=== PATIENT | female | born 1975 | race Caucasian/White ===

== ENCOUNTER 2017-06-02 20:44 | Emergency (ER) | payer MEDICAID ==
[~2017-06-02] VITALS: Ht 152.4 cm; Wt 44.5 kg
[2017-06-02 22:48] VITALS: BP 116/68
== END 2017-06-02 22:48 | disposition home or self-care (01) ==
LOC: ED 20:44
DX: G43.909 Migraine, unspecified, not intractable, without status migrainosus (principal)
CPT/HCPCS: J1885